=== PATIENT | female | born 1975 | race Caucasian/White ===

== ENCOUNTER 2017-08-04 03:02 | Emergency (ER) | payer OTHER ==
[~2017-08-04] VITALS: Ht 170.2 cm; Wt 81.7 kg
[~2017-08-04 03:02] MED LIST: ATIVAN1 MG PO; METHADONE HCL 110 M1 PO; METOPROLOL 50 M50 M1 PO; NAFCILLIN 2 GM A2 G1 IV; NICODERM CQ1 EAC1 TD; OXYCONTIN PO; PROTONIX40 M2 PO
[2017-08-04 03:55] VITALS: BP 151/104
== END 2017-08-04 03:55 | disposition left against medical advice (07) ==
LOC: M.ERS 03:02
DX: R06.02 Shortness of breath (principal); R05 Cough; R52 Pain, unspecified; F17.210 Nicotine dependence, cigarettes, uncomplicated; F10.99 Alcohol use, unspecified with unspecified alcohol-induced disorder; Z98.890 Other specified postprocedural states

== ENCOUNTER 2018-10-31 17:33 | Emergency (ER) | payer OTHER ==
[~2018-10-31] VITALS: Ht 165.1 cm; Wt 90.7 kg
[2018-10-31 18:48] LABS: ABSOLUTE LYMPHOCYTES 2.3 thou/uL (0.8-5.3); ABSOLUTE NEUTROPHILS 4.1 thou/uL (1.6-8.1); BASOPHILS 0.5 %; EOSINOPHILS 0.3 %; HEMATOCRIT 41.7 % (37.0-47.0); HEMOGLOBIN 14.2 gm/dL (12.0-15.0); LYMPHOCYTES 30.8 %; MCH 31.1 pg (26.0-34.0); MCV 91.5 fL (80.0-100.0); MONOCYTES 13.9 %; MPV 7.2 fl. (7.2-11.1); NUCLEATED RBCS 0 /100WBC; PLATELET COUNT* 216 thou/uL (150-400); POLYS 54.5 %; RBC 4.55 mil/uL (4.20-5.00); RDW-CV 13.5 % (10.5-14.5); WBC 7.5 thou/uL (4.0-11.0)
[2018-10-31 18:57] LABS: ALKALINE PHOSPHATASE 79 U/L (46-116); ANION GAP 10 mmol/L (7-16); BUN 15 mg/dL (7-18); CALCIUM 9.9 mg/dL (8.5-10.1); CHLORIDE 105 mmol/L (98-107); CO2 27 mmol/L (21-32); CREATININE 1.4 mg/dL (0.6-1.3); GLUCOSE 113 mg/dL (70-99); LIPASE 196 U/L (73-393); POTASSIUM 3.7 mmol/L (3.5-5.1); SGOT 59 U/L (15-37); SGPT 54 U/L (30-65); SODIUM 142 mmol/L (136-145); TOTAL BILIRUBIN 0.4 mg/dL (<0.1-1.0); TOTAL PROTEIN 8.9 g/dL (6.4-8.2); TROPONIN-I LEVEL <0.06 ng/mL (<0.06)
[2018-10-31 20:43] LABS: URINE BILIRUBIN NEGATIVE (Negative); URINE BLOOD 2+ (Negative); URINE CLARITY CLEAR; URINE COLOR YELLOW; URINE GLUCOSE-RANDOM NEGATIVE (Negative); URINE KETONES NEGATIVE (Negative); URINE LEUKOCYTES-REFLEX 1+ (Negative); URINE NITRITE-REFLEX POSITIVE (Negative); URINE PROTEIN TRACE (Negative); URINE UROBILINOGEN 0.2 E.U./dl (0.2-1.0)
[2018-10-31 20:51] LABS: AMP/METHAMP POSITIVE (Negative); BARBITURATES Negative (Negative); BENZODIAZEPINES Negative (Negative); COCAINE Negative (Negative); METHADONE Negative (Negative); OPIATES Negative (Negative); PCP Negative (Negative); THC Negative (Negative)
[2018-10-31] MEDS ORDERED: KEFLEX500 M1 PO (21:09)
[2018-10-31 21:12] LABS: SQUAMOUS >10 Many /LPF (0-3)
[2018-10-31 21:13] LABS: BACTERIA-REFLEX >30 Many /HPF (None Seen); HYALINE CASTS 4-10 Moderate /LPF (None Seen); MUCUS None Seen strn/LPF (None Seen); URINE RBC 3-10 Few /HPF (0-2); URINE WBC-REFLEX 6-15 Few /HPF (0-5)
[2018-10-31 21:14] LABS: CRYSTALS None Seen /LPF (None Seen)
[2018-10-31 21:19] VITALS: BP 142/92
== END 2018-10-31 21:23 | disposition home or self-care (01) ==
LOC: M.ERS 17:33
PROVIDERS: Physician Assistant
DX: N39.0 Urinary tract infection, site not specified (principal); J18.9 Pneumonia, unspecified organism; F15.10 Other stimulant abuse, uncomplicated; M54.5 Low back pain; Z90.49 Acquired absence of other specified parts of digestive tract; F17.210 Nicotine dependence, cigarettes, uncomplicated

== ENCOUNTER 2020-09-21 22:16 | Emergency (ER) | payer OTHER ==
[~2020-09-21] VITALS: Ht 167.6 cm; Wt 86.2 kg
[~2020-09-21 22:16] MED LIST changes: +KEFLEX500 M1 PO
[2020-09-21] MEDS ORDERED: WELLBUTRIN 100100 MG PO (22:33)
[2020-09-22 00:06] LABS: CALCIUM 9.3 mg/dL (8.5-10.1); CREATININE 0.8 mg/dL (0.6-1.3); POTASSIUM 3.8 mmol/L (3.5-5.1)
[2020-09-22 00:07] LABS: ABSOLUTE LYMPHOCYTES 1.5 thou/uL (0.8-5.3); ABSOLUTE MONOCYTES 0.6 thou/uL (0.0-1.2); ABSOLUTE NEUTROPHILS 3.1 thou/uL (1.6-8.1); BASOPHILS 0.3 %; EOSINOPHILS 0.9 %; LYMPHOCYTES 28.6 %; MCHC 33.3 g/dL (28.0-37.0); MONOCYTES 11.8 %; MPV 6.8 fl. (7.2-11.1); NUCLEATED RBCS 0 /100WBC; PLATELET COUNT* 231 thou/uL (150-400); POLYS 58.4 %; RBC 4.34 mil/uL (4.20-5.00); RDW-CV 13.3 % (10.5-14.5); WBC 5.2 thou/uL (4.0-11.0)
[2020-09-22] MEDS ORDERED: HYDROCODON-ACE1 EAC8 PO (02:46)
[2020-09-22] MEDS ORDERED: DOXYCYCLINE 10100 MG PO (02:46)
[2020-09-22 03:05] VITALS: BP 128/76
== END 2020-09-22 03:05 | disposition home or self-care (01) ==
LOC: M.ERS 22:16
PROVIDERS: Emergency Medicine
DX: L05.91 Pilonidal cyst without abscess (principal); F17.210 Nicotine dependence, cigarettes, uncomplicated; Z90.49 Acquired absence of other specified parts of digestive tract; Z86.14 Personal history of Methicillin resistant Staphylococcus aureus infection

== ENCOUNTER 2020-11-03 18:03 | Emergency (ER) | payer OTHER ==
[~2020-11-03] VITALS: Ht 167.6 cm; Wt 90.7 kg
[~2020-11-03 18:03] MED LIST changes: +DOXYCYCLINE 10100 MG PO; +HYDROCODON-ACE1 EAC8 PO; +WELLBUTRIN 100100 MG PO
[2020-11-03] MEDS ORDERED: NORCO5 PO ×2 (18:51→19:00)
[2020-11-03] MEDS ORDERED: AUGMENTIN 875-1 EACH PO ×2 (18:51→19:05)
[2020-11-03 19:13] VITALS: BP 124/64
== END 2020-11-03 19:13 | disposition home or self-care (01) ==
LOC: M.ERS 18:03
DX: Z48.01 Encounter for change or removal of surgical wound dressing (principal); F17.210 Nicotine dependence, cigarettes, uncomplicated; Z90.49 Acquired absence of other specified parts of digestive tract